=== PATIENT | male | born 1955 ===

== ENCOUNTER → 2018-06-04 18:46 | Outpatient (REF) | payer OTHER, SELFPAY ==
[2018-06-04 19:05] LABS: BUN Creatinine Ratio 28.9 (6-22); Blood Urea Nitrogen 26 mg/dL (9-20); Calcium 9.7 mg/dL (8.4-10.2); Carbon Dioxide 27 mmol/L (22-32); Chloride 107 mmol/L (98-107); Estimated Glomerular Filt Rate > 60.0 mL/min (>60); Glucose 97 mg/dL (80-110); HEMOLYSIS 38 (0-50); Potassium 4.9 mmol/L (3.4-5.1); Sodium 147 mmol/L (137-145)
[2018-06-04 19:22] LABS: Free T4, Direct Thyroxine 0.96 ng/dL (0.78-2.19)
[2018-06-04 19:36] LABS: Thyroid Stimulating Hormone 0.93 uIU/mL (0.47-4.68)
[2018-06-04 20:31] LABS: Add Manual Diff / Slide Review NO; Basophils Percent Auto 0.4 % (0-2); Eosinophils Percent Auto 1.3 % (2-4); Hemoglobin 16.5 g/dL (13.5-17.5); Lymphocytes Percent Auto 29.4 % (25-40); Monocytes Percent Auto 9.3 % (3-14); Neutrophils Absolute Auto 3100 /uL (3000-5900); Neutrophils Percent Auto 59.6 % (50-75); Platelet Count 254 X10^3/uL (150-400); Red Cell Distribution Width 13.4 % (11.6-14.8); White Blood Cell Count 5.2 X10^3/uL (4.5-11.0)
[2018-06-04 20:33] LABS: Mean Corpuscular HGB Conc 48.2 % (30-36)
== END ==
LOC: LAB 18:46
PROVIDERS: Visit Provider Family Medicine
DX: I48.1 Persistent atrial fibrillation (principal)
CPT/HCPCS: 80048; 84439; 84443; 84481; 85025